=== PATIENT | male | born 1975 | race Caucasian/White ===

== ENCOUNTER 2020-10-06 07:52 | Day surgery (SDC) | payer OTHER ==
[2020-10-06] MEDS ORDERED: Sodium Chloride 0.9% 10 ML Syringe FLUSH PRN (08:00)
[2020-10-06] MEDS: Lactated Ringers 1,000 ML IV SCH (08:37)
[2020-10-06] MEDS ORDERED: ceFAZolin 1 GM Vial ONE (09:30)
[2020-10-06] MEDS ORDERED: Ketamine 200 MG/20 ML MDV ONE (09:31)
[2020-10-06] MEDS ORDERED: Midazolam 1 MG/ML 2 ML SDV ONE (09:31)
[2020-10-06] MEDS ORDERED: Propofol 200 MG/20 ML SDV ONE (09:31)
[2020-10-06] MEDS: Sodium Phosphate,Monobasic/Sodium Phosphate,Dibasic Enema 133 ML Bottle RECTAL ONE (09:45)
[2020-10-06] MEDS ORDERED: Bupivacaine 0.5%/EPINEPHrine 1:200,000 30 ML SDV ONE (09:55)
[2020-10-06] MEDS ORDERED: ceFAZolin 1 GM Vial IV ONE (10:03)
[2020-10-06] MEDS ORDERED: Midazolam 1 MG/ML 2 ML SDV IV ONE (10:03)
[2020-10-06] MEDS ORDERED: Propofol 200 MG/20 ML SDV IV ONE (10:03)
[2020-10-06] MEDS ORDERED: Ketamine 200 MG/20 ML MDV IV ONE (10:03)
[2020-10-06] MEDS: Bupivacaine 0.5%/EPINEPHrine 1:200,000 30 ML SDV INFILT ONE (10:21)
--- NOTE | 2020-10-06 11:42 | PCM.OPNOTE ---
- General Post-Op/Procedure Note Date of Surgery/Procedure: 10/06/20 Operative Procedure(s): Internal and external hemorrhoidectomy. Findings: The patient has moderately enlarged internal and external hemorrhoids at the 3 o'clock position. Pre Op Diagnosis: Moderately enlarged internal and external hemorrhoids. Post-Op Diagnosis: Same Anesthesia Technique: General ET Tube Primary Surgeon: Wilda Salmon Condition: Good Free Text/Narrative:: Preoperative diagnosis: Moderately enlarged internal and external hemorrhoids. Postoperative diagnosis: As above. Procedure performed: Internal and external hemorrhoidectomies. Informed consent was obtained from the patient regarding this procedure. All possible competitions were thoroughly discussed. Patient understands and wishes to proceed. He was kept in the lithotomy position after being given a satisfactory general anesthetic. The genitals were prepped and draped in the usual fashion. An endoscope was introduced. A moderately enlarged external and internal hemorrhoids were found at the 3 o'clock position. A curved clamp was placed underneath these 2 hemorrhoids and external and internal hemorrhoidectomies were performed. 0 Polysorb suture was used to approximate the pedicles. No complication was encountered. Care was taken to preserve the external and internal sphincters. A Vaseline gauze was placed into the anorectal canal. The scope was removed. The patient tolerated the procedure well. There were no operative competitions. He was transferred to the recovery room in excellent condition.
== END 2020-10-06 13:45 | disposition home or self-care (01) ==
LOC: KA.SDS 07:52
PROVIDERS: ATTEND Family Medicine
DX: K64.8 Other hemorrhoids (principal); K64.4 Residual hemorrhoidal skin tags; Z79.899 Other long term (current) drug therapy
CPT/HCPCS: 00902; J0690; J2250; J2704; J3490; J7120

== ENCOUNTER 2022-03-03 08:22 | Emergency (ER) | payer OTHER ==
[2022-03-03] MEDS: Diphtheria,Pertussis(Acell),Tetanus Vaccine 0.5 ML Syringe IM ONE (08:36)
[2022-03-03] MEDS: Lidocaine 1% with EPINEPHrine 1:100,000 10 ML MDV INJECT ONE (08:53)
[2022-03-03] MEDS: Lidocaine 1% with EPINEPHrine 1:100,000 10 ML MDV ONE (09:13)
== END 2022-03-03 09:30 | disposition home or self-care (01) ==
LOC: KA.ED 08:22
DX: S61.412A Laceration without foreign body of left hand, initial encounter (principal); Z72.0 Tobacco use; Z23 Encounter for immunization; W26.8XXA Contact with other sharp object(s), not elsewhere classified, initial encounter
CPT/HCPCS: 12001; 73130-LT; 90471; 90715; 99283; 99283-25